=== PATIENT | male | born 1995 | race Two or more races ===

== ENCOUNTER 2020-02-09 12:11 | Emergency (ER) | payer OTHER ==
[~2020-02-09] VITALS: Ht 190.5 cm; Wt 120.0 kg
[2020-02-09 14:06] VITALS: BP 152/97
[2020-02-09] MEDS ORDERED: CEPH-264 PO (14:55)
[2020-02-09] MEDS ORDERED: HYDR30CR61 TP (14:55)
--- NOTE | 2020-02-09 17:40 | PHYS DOC ---
Past Medical History Past Medical History: No Pertinent History Past Surgical History: No Surgical History Smoking Status: Never Smoker Alcohol Use: None General Adult EDM: Chief Complaint: HEMORRHOIDS HPI: HPI: Patient is a 24 year old male who presents with burning with wiping after a bowel movement. See downtime paperwork. Review of Systems: Review of Systems: Constitutional: Denies fever or chills. [] Eyes: Denies change in visual acuity. [] HENT: Denies nasal congestion or sore throat. [] Respiratory: Denies cough or shortness of breath. [] Cardiovascular: Denies chest pain or edema. [] GI: Denies abdominal pain, nausea, vomiting, bloody stools or diarrhea. [] : Denies dysuria. [] Musculoskeletal: Denies back pain or joint pain. [] Integument: Denies rash. [] Neurologic: Denies headache, focal weakness or sensory changes. [] Endocrine: Denies polyuria or polydipsia. [] Lymphatic: Denies swollen glands. [] Psychiatric: Denies depression or anxiety. [] Heart Score: Risk Factors: Risk Factors: DM, Current or recent (<one month) smoker, HTN, HLP, family history of CAD, obesity. Risk Scores: Score 0 - 3: 2.5% MACE over next 6 weeks - Discharge Home Score 4 - 6: 20.3% MACE over next 6 weeks - Admit for Clinical Observation Score 7 - 10: 72.7% MACE over next 6 weeks - Early Invasive Strategies Physical Exam: PE: Constitutional: Well developed, well nourished, no acute distress, non-toxic appearance. [] HENT: Normocephalic, atraumatic, bilateral external ears normal, oropharynx moist, no oral exudates, nose normal. [] Eyes: PERRLA, EOMI, conjunctiva normal, no discharge. [] Neck: Normal range of motion, no tenderness, supple, no stridor. [] Cardiovascular:Heart rate regular rhythm, no murmur [] Lungs & Thorax: Bilateral breath sounds clear to auscultation [] Abdomen: Bowel sounds normal, soft, no tenderness, no masses, no pulsatile masses. [] Skin: Warm, dry, no erythema, no rash. [] Back: No tenderness, no CVA tenderness. [] Extremities: No tenderness, no cyanosis, no clubbing, ROM intact, no edema. [] Neurologic: Alert and oriented X 3, normal motor function, normal sensory function, no focal deficits noted. [] Psychologic: Affect normal, judgement normal, mood normal. [] Current Patient Data: Vital Signs: Vital Signs Date Time Temp Pulse Resp B/P (MAP) Pulse Ox O2 Delivery O2 Flow Rate FiO2 02/09/20 14:06 99.3 68 16 152/97 (115) 99 Room Air 99.3 EKG: EKG: [] Radiology/Procedures: Radiology/Procedures: [] Course & Med Decision Making: Course & Med Decision Making Pertinent Labs and Imaging studies reviewed. (See chart for details) See downtime paperwork. [] Dragon Disclaimer: Dragon Disclaimer: This electronic medical record was generated, in whole or in part, using a voice recognition dictation system. Departure Departure Impression: Primary Impression: Hemorrhoid Qualified Codes: K64.4 - Residual hemorrhoidal skin tags Disposition: HOME, SELF-CARE Condition: STABLE Patient Instructions: Hemorrhoids, [id number] Scripts Hydrocortisone (ANUSOL-HC) 30 Gm Cream..g. 1 KAYLIN TP TID for 10 Days, #30 GM 0 Refills Prov: LISET LEMUS APRN 02/09/20 Cephalexin (KEFLEX) 500 Mg Capsule 1 CAP PO BID for 7 Days, #14 CAP 0 Refills Prov: LISET LEMUS APRN 02/09/20 Justicifation of Admission Dx: Justifications for Admission: Justification of Admission Dx: N/A LISET LEMUS APRN Feb 09, 2020 17:40
== END 2020-02-09 15:05 | disposition home or self-care (01) ==
LOC: ER 12:11
DX: K64.4 Residual hemorrhoidal skin tags (principal)
CPT/HCPCS: 99283